=== PATIENT | male | born 1990 | race Caucasian/White ===

== ENCOUNTER 2016-07-09 03:15 | Emergency (ER) | payer OTHER ==
[2016-07-09 03:33] VITALS: RESP 16; TEMP 97.9; O2SAT 96
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
[2016-07-09 04:50] VITALS: BP 128/79; PULSE 93
== END 2016-07-09 04:48 | disposition home or self-care (01) ==
PROC: 0HQGXZZ Repair Left Hand Skin, External Approach (ICD-10-PCS; principal; 2016-07-09)
DX: S61.012A Laceration without foreign body of left thumb without damage to nail, initial encounter (principal); S61.210A Laceration without foreign body of right index finger without damage to nail, initial encounter; W26.0XXA Contact with knife, initial encounter

== ENCOUNTER 2016-07-11 19:28 | Emergency (ER) | payer OTHER ==
[2016-07-11 19:42] VITALS: BP 114/81; PULSE 70; RESP 14; TEMP 99; O2SAT 97
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
[2016-07-11] MEDS ORDERED: KETOROLAC 30 MG/1 ML SDV IM ONE (20:06)
== END 2016-07-11 20:55 | disposition home or self-care (01) ==
DX: S09.90XD Unspecified injury of head, subsequent encounter (principal); F17.200 Nicotine dependence, unspecified, uncomplicated; Y04.0XXD Assault by unarmed brawl or fight, subsequent encounter
CPT/HCPCS: J1885

== ENCOUNTER 2016-07-15 19:38 | Emergency (ER) | payer OTHER ==
[2016-07-15 19:47] VITALS: RESP 16; O2SAT 94
[2016-07-15] MEDS ORDERED: IBUPROFEN 600 MG TAB PO ONE (20:24)
[2016-07-15] MEDS ORDERED: ONDANSETRON DISINTEGRATING 4 MG TAB PO ONE (20:24)
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
[2016-07-15 21:29] VITALS: BP 136/99; PULSE 80; TEMP 97.9
== END 2016-07-15 21:35 | disposition home or self-care (01) ==
DX: S16.1XXD Strain of muscle, fascia and tendon at neck level, subsequent encounter (principal); S06.0X0D Concussion without loss of consciousness, subsequent encounter; Z87.891 Personal history of nicotine dependence; Y08.89XD Assault by other specified means, subsequent encounter

== ENCOUNTER 2017-04-13 12:43 | Emergency (ER) | payer OTHER ==
[2017-04-13 12:54] VITALS: TEMP 97.5; O2SAT 96
--- NOTE | 2017-04-13 13:49 | CPEKG ---
Heart Rate: 58 RR Interval: 1034 P-R Interval: 126 QRSD Interval: 92 QT Interval: 408 QTC Interval: 401 P Wetmore: 0 QRS Wetmore: 24 T Wave Wetmore: 20 EKG Severity - NORMAL ECG - EKG Impression: SINUS RHYTHM Electronically Signed By: Spenser Delatorre 13-Apr-2017 14:12:21
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
[2017-04-13 14:33] VITALS: BP 128/75; PULSE 85; RESP 16
== END 2017-04-13 14:33 | disposition home or self-care (01) ==
DX: G40.909 Epilepsy, unspecified, not intractable, without status epilepticus (principal); Z87.891 Personal history of nicotine dependence; X58.XXXA Exposure to other specified factors, initial encounter
CPT/HCPCS: 82947-QW